=== PATIENT | female | born 1935 | race Caucasian/White ===

== ENCOUNTER 2016-10-30 14:17 | Emergency (ER) | payer MEDICARE, OTHER ==
[2016-10-30] MEDS ORDERED: Lidocaine 1% PF 5 ML VIAL ONE (14:49)
[2016-10-30] MEDS ORDERED: cefTRIAXone\\ROCEPHIN 1 GM VIAL ONE (14:49)
--- NOTE | 2016-10-30 15:11 | RAD ---
EXAM: CHEST 2 VIEWS: HISTORY: Three weeks of cough and difficulty breathing. Fever. FINDINGS: Normal cardiac silhouette. Pulmonary vessels and hilum are normal. Visualized costophrenic angles are clear. There are hazy opacities in both lung bases which may represent small pleural effusion. There appear to be bibasilar opacities, worrisome for bibasilar pneumonia. Lungs are mildly hyperi nflated. There is no pneumothorax or osseous abnormalities. Bilateral breast augmentation is noted . IMPRESSION: Bibasilar infiltrates. Continued surveillance is recommended. POS: [facility]
--- NOTE | 2016-10-30 15:31 | PICIS ---
[facility] EMERGENCY RECORD TRIAGE (WedOct 30, 2016 14:28 SMOO) TRIAGE NOTES: COUGH, DIFFICULTY BREATHING, FEVER X 3 WEEKS. (WedOct 30, 2016 14:28 SMOO) PATIENT: NAME: Marisol Hodges, AGE: 81, GENDER: female, : Sat 1935, TIME OF GREET: WedOct 30, 2016 14:18, PREFERRED LANGUAGE: Thai, ETHNICITY: Not or , ECODE BILLING MAP: [facility], SSN: [id number], Zip Code: [address], KG WEIGHT: 81.65, PHONE: , , , PERSON ID: [id number], PCP: Mohit GIRON LUKE. (WedOct 30, 2016 14:28 SMOO) COMPLAINT: COUGH,CONGESTION,WHEEZING. (WedOct 30, 2016 14:28 SMOO) ADMISSION: URGENCY: 4 Non Urgent, ADMISSION SOURCE: Home, TRANSPORT: Walk-in, BED: ER -04. (WedOct 30, 2016 14:28 SMOO) ASSESSMENT: Assessment: COLD SYMPTOMS X 3 WEEKS. (14:34 SMOO) IMMUNIZATIONS: Flu vaccine up to date, Tetanus not up to date. (14:34 SMOO) SIRS SCORING: Heart Rate 55-109 (0), Temp range 96.8-101.1 (0), respiratory rate 12-24 (0), Mental Status altered: no (0), Infection or Suspected Infection: No. (14:34 SMOO) TRIAGE SCREENING: Patient denies suicidal ideation, Patient denies presence of domestic violence. (14:34 SMOO) PROVIDERS: TRIAGE NURSE: Lashay Mc RN. (WedOct 30, 2016 14:28 SMOO) VITAL SIGNS: BP 119/55, Pulse 82, Resp 20, Temp 98.8, (Oral), Pain 0, O2 Sat 96, on Room Air, Time 10/30/2016 14:23. (14:23 SMOO) KNOWN ALLERGIES TETNUS CURRENT MEDICATIONS Lipitor: TABLET : Strength - 20 mg : ORAL Patient Dose: 1 tab(s) Oral once a day. (14:36 SMOO) levothyroxine: TABLET : Strength - 75 mcg : ORAL Patient Dose: 1 tab(s) Oral once a day. (14:37 SMOO) Requip: TABLET : Strength - 1 mg : ORAL Patient Dose: 1 tab(s) Oral once a day. (14:38 SMOO) PriLOSEC: CAPSULE,DELAYED RELEASE (ENTERIC COATED) : Strength - 40 mg : ORAL Patient Dose: 1 cap(s) Oral once a day. (14:38 SMOO) Caltrate 600 + D: TABLET, CHEWABLE : Strength - 600 mg calcium (1,500 mg)-800 unit : ORAL Patient Dose: 1 tab(s) Oral once a day. (14:40 SMOO) amiodarone: TABLET : Strength - 100 mg : ORAL Patient Dose: 1 tab(s) Oral once a day. (14:41 SMOO) &a-1R&a+25V*p+0X*i5916L*c202B*c15G*c2P*p-0X&a-25V&a+1R Name: Marisol Hodges : 1935 F81 MedRec: [id number] AcctNum: [id number] Prepared: WedOct 30, 2016 15:48 by Interface Page 1 of 6 pMD [facility] EMERGENCY RECORD [place]: TABLET : Strength - 10 mg-325 mg : ORAL Patient Dose: 1-2 tab(s) Oral As Needed.EVERY 4-6 HOURS. (14:43 SMOO) Premarin: CREAM WITH APPLICATOR : Strength - 0.625 mg/gram : VAGINAL Patient Dose: 1 g Vaginal. (14:44 SMOO) Spiriva with HandiHaler: CAPSULE, WITH INHALATION DEVICE : Strength - 18 mcg : INHALATION Patient Dose: 1 mcg Inhaler once a day. (14:45 SMOO) tolterodine: TABLET : Strength - 2 mg : ORAL Patient Dose: 1 tab(s) Oral 2 times a day. (14:45 SMOO) VITAL SIGNS VITAL SIGNS: BP: 119/55, Pulse: 82, Resp: 20, Temp: 98.8 (Oral), Pain: 0, O2 sat: 96 on Room Air, Time: 10/30/2016 14:23. (14:23 SMOO) BP: 122/55, Pulse: 80, Resp: 18, Temp: 98.9, Pain: 0, O2 sat: 96 on RA, Time: 10/30/2016 15:35. (15:35 SMOO) NURSING ASSESSMENT: RESPIRATORY /CHEST (15:04 SMOO) CONSTITUTIONAL: Patient arrives ambulatory, Gait steady, History obtained from patient, Patient appears comfortable, Patient cooperative, Patient alert, Oriented to person, place and time, Skin warm, Skin dry, Skin normal in color, Mucous membranes pink, Mucous membranes moist, Patient is well-groomed, Patient complains of COUGH, FEVER. PAIN: No sudden onset of pain, Pain exacerbated by nothing, Nothing has been tried to alleviate the pain. RESPIRATORY/CHEST: Lungs auscultated, Breath sounds without rhonchi, Respiratory assessment findings include respiratory effort easy, Respirations regular, Conversing normally, Neck and chest exam findings include trachea midline, Chest expansion equal, Chest movement symmetrical, Associated with cough, productive of, Associated with fever, PER PT. ENT: Ear assessment findings include ear normal to inspection, Nasal assessment findings include nose normal to inspection, Mouth and throat assessment findings include mouth inspection normal. NURSING PROCEDURE: DISCHARGE NOTE (15:35 SMOO) DISCHARGE: Patient discharged to home, ambulating without assistance, driving self, unaccompanied, Summary of Care printed/ provided, Prescriptions given and instructions on side effects given, Name of prescription(s) given: ZITHROMAX. VITAL SIGNS: BP: 122, / 55, Pulse: 80, Resp: 18, Temp: 98.9, Pain: 0, O2 sat: 96, on: RA. NURSING PROCEDURE: TRANSPORT TO TESTS PATIENT IDENTIFIER: Patient's identity verified by patient &a-1R&a+25V*p+0X*l5519G*c202B*c15G*c2P*p-0X&a-25V&a+1R Name: Marisol Hodges : 1935 F81 MedRec: [id number] AcctNum: [id number] Prepared: WedOct 30, 2016 15:48 by Interface Page 2 of 6 pMD [facility] EMERGENCY RECORD stating name, Patient's identity verified by hospital ID bracelet. (14:57 SMOO) TRANSPORT TO TESTS: Transport indicated to facilitate diagnosis, Patient transported to x-ray, ambulatory, Accompanied by x-ray pet care technician. (14:57 SMOO) Patient transported to x-ray, via cart, Accompanied by x-ray pet care technician, Patient arrived in location at 15:00, Patient departed location at 15:05. (14:52 CCRI) ORDER DETAILS Order Name: XR Chest Pa & Lat STANDARD, Status: Active, Time: 14:37 10/30/2016, User: JULIO, - Ordered for: MD Stevens Stanley, - Entered by: MD Stevens Stanley - [facility] Oct 30, 2016 14:37, - Quantity: 1. MEDICATION ADMINISTRATION SUMMARY Drug Name: Rocephin IM Convenience, Dose Ordered: 1 g, Route: Intramuscular, Status: Given, Time: 15:08 10/30/2016, Detailed record available in Medication Service section. MEDICATION SERVICE (15:08 ) Rocephin IM Convenience: Order: Rocephin IM Convenience (ceftriaxone sodium/lidocaine HCl) - Dose: 1 g : Intramuscular Schedule: Now Ordered by: Yusef Stevens MD Entered by: Yusef Stevens MD WedOct 30, 2016 14:37 , Acknowledged by: Lashay Mc RN WedOct 30, 2016 14:46 Documented as given by: Lashay Mc RN WedOct 30, 2016 15:08 Patient, Medication, Dose, Route and Time verified prior to administration. IM medication, Amount given: 1GM, Medication administered to left buttock, Medication combined for administration with 1% LIDOCAINE 2.1ML, Patient appears Awake and alert- acceptable, Correct patient, time, route, dose and medication confirmed prior to administration, Patient advised of actions and side-effects prior to administration, Allergies confirmed and medications reviewed prior to administration, Patient in position of comfort, Side rails up, Cart in lowest position. 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 HISTORIAN: History provided by patient. TIME COURSE: Gradual onset of symptoms. EXACERBATED BY: Patient's condition &a-1R&a+25V*p+0X*f0822B*c202B*c15G*c2P*p-0X&a-25V&a+1R Name: Marisol Hodges : 1935 F81 MedRec: [id number] AcctNum: [id number] Prepared: WedOct 30, 2016 15:48 by Interface Page 3 of 6 pMD [facility] EMERGENCY RECORD exacerbated by nothing. RELIEVED BY: Patient's condition relieved by nothing. ROS (14:38 SHAN) CONSTITUTIONAL: Negative constitutional review of systems. EYES: Negative eye review of systems. ENT: Negative ears, nose, throat review of systems. CARDIOVASCULAR: Negative cardiovascular review of systems. RESPIRATORY: Historian reports cough. GI: Negative gastrointestinal review of systems. GENITOURINARY FEMALE: Negative genitourinary review of systems. MUSCULOSKELETAL: Negative musculoskeletal review of systems. SKIN: Negative skin review of systems. NEUROLOGIC: Negative neurologic review of systems. ENDOCRINE: Negative endocrine review of systems. NOTES: All systems reviewed, negative except as described above. PAST MEDICAL HISTORY (14:34 SMOO) MEDICAL HISTORY: Flu vaccine up to date, Tetanus not up to date, Past medical history includes cardiac history, arrhythmia, atrial fibrillation, Past medical history includes history of hyperlipidemia, high cholesterol, Past medical history includes pulmonary disease, chronic obstructive pulmonary disease. FEMALE SURGICAL HISTORY: BENIGN BREAST CYST, Surgical history of hysterectomy, Surgical history of orthopedic surgery, BACK SURGERY X 4. PSYCHIATRIC HISTORY: Notes: NO HISTORY. SOCIAL HISTORY: Patient denies alcohol use, Patient denies drug use, Patient is a former tobacco user. PHYSICAL EXAM (14:38 SHAN) CONSTITUTIONAL: Patient afebrile, Pulse normal, Blood pressure normal, Respiratory rate normal, Patient appears non toxic, Patient appears pain free, Patient alert and oriented to person, place and time. HEAD: Head exam included findings of head atraumatic, normocephalic. EYES: Eye exam normal, Eye exam included findings of eyelids normal to inspection, Pupils equally round and reactive to light, Extraocular muscles intact. ENT: ENT exam normal, Pharynx exam normal, Uvula exam normal, Tonsil exam normal. NECK: Neck exam normal, Neck exam included findings of normal range of motion, Trachea midline. RESPIRATORY CHEST: Mild diffuse ronchi noted, Chest exam included findings of chest movement symmetrical, Chest expansion equal, Percussion normal. CARDIOVASCULAR: Cardiovascular assessment normal, Cardiovascular exam included findings of heart rate regular rate and rhythm, Heart &a-1R&a+25V*p+0X*d5058U*c202B*c15G*c2P*p-0X&a-25V&a+1R Name: Marisol Hodges : 1935 F81 MedRec: [id number] AcctNum: [id number] Prepared: WedOct 30, 2016 15:48 by Interface Page 4 of 6 pMD [facility] EMERGENCY RECORD sounds normal. ABDOMEN FEMALE: Abdominal exam normal, Abdominal exam included findings of abdomen nontender, Bowel sounds normal. BACK: Back exam normal. UPPER EXTREMITY: Upper extremity exam normal, Upper extremity exam included findings of inspection normal, Range of motion normal. LOWER EXTREMITY: Lower extremity exam normal, Lower extremity exam included findings of inspection normal, Range of motion normal. NEURO: Neuro exam normal. SKIN: Skin exam normal. PSYCHIATRIC: Psychiatric exam normal, Psychiatric exam included findings of patient oriented to person place and time, Normal affect, Judgment normal, Insight normal. EVENTS TRANSFER: Triage to Emergency Emergency Room -04. (WedOct 30, 2016 14:28 SMOO) Removed from Emergency Emergency Room -04. (15:37 SMOO) DOCTOR NOTES (15:20 SHAN) TEXT: Fever, purulent cough for 3 weeks getting worse; chest x-ray read as neg. by radiologist but right heart margin somewhat obscured. Will treat as a bad bronchitis at least. Aware of amiodarone and lower dose Zithromax still seems indicated. DATA REVIEWED: Lab data reviewed, Xray data reviewed. PROBLEM LIST No recorded problems DIAGNOSIS (15:22 SHAN) FINAL: PRIMARY: Acute bronchitis. DISPOSITION PATIENT: Disposition Type: Discharge, Disposition: *Discharge Home. (15:22 SHAN) Patient left the department. (15:37 SMOO) INSTRUCTION (15:19 SHAN) DISCHARGE: BRONCHITIS, ABX TX (ADULT). FOLLOWUP: Mohit GIRON, ARLEEN, Internal Medicine, [facility] [id number], . SPECIAL: 1. antibiotic as directed 2. be aware that there is a chance that the antibiotic might increase the strength of the amiodarone some; but should be ok 3. rest as much as possible. 4. return if condition worsens 5. followup with regular provider in a week or two. PRESCRIPTION (15:17 JULIO) Zithromax oral: CAPSULE : 250 mg : ORAL : Quantity: 1 &a-1R&a+25V*p+0X*i7259R*c202B*c15G*c2P*p-0X&a-25V&a+1R Name: Marisol Hodges : 1935 81 MedRec: [id number] AcctNum: [id number] Prepared: WedOct 30, 2016 15:48 by Interface Page 5 of 6 pMD [facility] EMERGENCY RECORD Unit: tab(s) Route: ORAL Schedule: See Notes Dispense: 8 Unit: tab(s) May substitute. Refills: No Refills POTENTIAL CONTRAINDICATED INTERACTION: amiodarone oral. NOTES: 2 at first and one daily for seven days No Refills. IMAGING (15:39 SMOO) *DISCHARGE INSTRUCTIONS RECEIPT: Image captured from scanner. *SUPPLY CHARGE SHEET: Image captured from scanner. ADMIN (15:22 JULIO) DIGITAL SIGNATURE: MD Stevens Stanley. Reyna: CCRI=ANA MARIA [place] SHAN=MD Stevens Stanley SMOO=MICHELLE Mc, Lashay &a-1R&a+25V*p+0X*c8726W*c202B*c15G*c2P*p-0X&a-25V&a+1R Name: Marisol Hodges : 1935 F81 MedRec: [id number] AcctNum: [id number] Prepared: WedOct 30, 2016 15:48 by Interface Page 6 of 6 pMD MTDD
== END 2016-10-30 15:35 | disposition home or self-care (01) ==
LOC: NAV ERS 14:17
DX: J20.9 Acute bronchitis, unspecified (principal); I48.91 Unspecified atrial fibrillation; E78.00 Pure hypercholesterolemia, unspecified; E78.5 Hyperlipidemia, unspecified; J44.9 Chronic obstructive pulmonary disease, unspecified; Z87.891 Personal history of nicotine dependence; Z90.710 Acquired absence of both cervix and uterus; Z79.891 Long term (current) use of opiate analgesic; Z79.899 Other long term (current) drug therapy
CPT/HCPCS: 71020; 96372; J0696; J2001

== ENCOUNTER 2016-11-16 09:12 | Outpatient (CLI) | payer MEDICARE, OTHER ==
[2016-11-16 13:00] LABS: ALT (SGPT) 19 U/L (0-55); AST (SGOT) 16 U/L (5-34); Alkaline Phosphatase 88 U/L (40-150); Anion Gap 16 mmol/L (10-20); BUN (Urea Nitrogen) 21 mg/dL (9.8-20.1); Bilirubin, Total 0.6 mg/dL (0.2-1.2); Calc. Creatinine Clearance 0 mL/min (70-130); Calcium 9.2 mg/dL (7.8-10.44); Carbon Dioxide 23 mmol/L (23-31); Chloride 104 mmol/L (98-107); Estimated GFR-MDRD 48; Globulin 2.8 g/dL (2.4-3.5); LDL Cholesterol, Calculated 73 mg/dL
[2016-11-16 13:28] LABS: #Basophils 0.1 thou/uL (0.0-0.2); #Eosinphils 0.1 thou/uL (0.0-0.7); #Lymphocytes 2.7 thou/uL (1.20-3.40); #Monocytes 0.5 thou/uL (0.11-0.59); #Neutrophils 4.3 thou/uL (1.40-6.50); %Basophils 1.2 % (0.0-1.0); %Eosinophils 1.7 % (0.0-10.0); %Lymphocytes 34.6 % (21.0-51.0); %Monocytes 6.7 % (0.0-10.0); Hematocrit 44.9 % (36.0-47.0); Mean Platelet Volume 5.3 fL (7.4-10.4); Red Blood Cell (RBC) Count 4.68 mill/uL (4.20-5.40); White Blood Cell (WBC) Count 7.8 thou/uL (4.8-10.8)
== END 2016-11-16 09:13 | disposition home or self-care (01) ==
LOC: NAVSJIPCSP 09:12
PROVIDERS: ATTEND Internal Medicine
DX: E78.5 Hyperlipidemia, unspecified (principal); M25.571 Pain in right ankle and joints of right foot; M16.9 Osteoarthritis of hip, unspecified; G47.33 Obstructive sleep apnea (adult) (pediatric); N39.0 Urinary tract infection, site not specified; I50.9 Heart failure, unspecified; M54.16 Radiculopathy, lumbar region; Z79.899 Other long term (current) drug therapy
CPT/HCPCS: 36415; 80053; 80061; 81003; 84443; 85025; 85652; 86140; 87086

== ENCOUNTER 2016-11-17 14:16 | Outpatient (CLI) | payer MEDICARE, OTHER ==
[2016-11-17 20:58] LABS: Bilirubin Negative (Negative); Blood, Urine Negative (Negative); Glucose, Urine (Dipstick) Negative (Negative); Ketone, Urine Negative (Negative); Nitrite Negative (Negative); Protein, Urine (Dipstick) Negative (Neg-Trace); Urobilinogen 0.2 mg/dL (0.2-1.0)
== END 2016-11-17 14:17 | disposition home or self-care (01) ==
LOC: NAVSJIPCSP 14:16
PROVIDERS: ATTEND Internal Medicine
DX: N39.0 Urinary tract infection, site not specified (principal)
CPT/HCPCS: 81003

== ENCOUNTER 2018-02-09 17:53 | Emergency (ER) | payer MEDICARE, BC ==
[2018-02-09] MEDS ORDERED: Ondansetron HCl/PF 4 MG/2 ML Vial ONE (18:24)
[2018-02-09] MEDS ORDERED: Sodium Chloride 0.9% 1,000 ML ONE (18:24)
[2018-02-09 18:38] LABS: #Eosinphils 0.1 thou/uL (0.0-0.7); #Lymphocytes 3.2 thou/uL (1.20-3.40); #Monocytes 0.9 thou/uL (0.11-0.59); #Neutrophils 4.9 thou/uL (1.40-6.50); %Basophils 0.4 % (0.0-1.0); %Eosinophils 1.1 % (0.0-10.0); %Lymphocytes 35.6 % (21.0-51.0); %Monocytes 9.4 % (0.0-10.0); %Neutrophils 53.6 % (42.0-75.0); Hemoglobin 13.9 g/dL (12.0-16.0); Mean Corpuscular Hemoglobin 28.5 pg (27.0-31.0); Mean Platelet Volume 5.6 fL (7.4-10.4); Platelet Count 276 thou/uL (130-400); RBC Distribution Width 12.7 % (11.5-14.5); Red Blood Cell (RBC) Count 4.87 mill/uL (4.20-5.40); White Blood Cell (WBC) Count 9.1 thou/uL (4.8-10.8)
[2018-02-09 19:00] LABS: ALT (SGPT) 19 U/L (8-55); AST (SGOT) 15 U/L (5-34); Albumin 4.2 g/dL (3.4-4.8); Alkaline Phosphatase 86 U/L (40-150); Anion Gap 17 mmol/L (10-20); BUN (Urea Nitrogen) 18 mg/dL (9.8-20.1); Bilirubin, Total 0.5 mg/dL (0.2-1.2); CKMB 2.6 ng/mL (0-6.6); Calc. Creatinine Clearance 0 mL/min (70-130); Calcium 9.5 mg/dL (7.8-10.44); Carbon Dioxide 22 mmol/L (23-31); Chloride 98 mmol/L (98-107); Estimated GFR-MDRD 65; Globulin 2.8 g/dL (2.4-3.5); Glucose 108 mg/dL (83-110); Lipase 20 U/L (8-78); Potassium 3.9 mmol/L (3.5-5.1); Sodium 133 mmol/L (136-145); Troponin I Less than 0.010 ng/mL (< 0.028)
--- NOTE | 2018-02-09 20:26 | RAD ---
AP VIEW OF THE CHEST 02/09/18 INDICATION: Nausea and vomiting. FINDINGS: There are bilateral breast implants. There is a dual lead pacemaker overlying the chest wall. Heart s ize and pulmonary vasculature is normal. The lungs are clear. No pleural effusion or pneumothorax is evident. No acute osseous abnormality is evident. IMPRESSION: No acute cardiopulmonary abnormality. Examination is compared to a prior dated 10/30/16. POS: [facility]
== END 2018-02-09 20:22 | disposition home or self-care (01) ==
LOC: NAV ERS 17:53
DX: R11.2 Nausea with vomiting, unspecified (principal); I48.91 Unspecified atrial fibrillation; E78.5 Hyperlipidemia, unspecified; J44.9 Chronic obstructive pulmonary disease, unspecified; Z79.891 Long term (current) use of opiate analgesic; Z79.899 Other long term (current) drug therapy
CPT/HCPCS: 71045; 80053; 82553; 83690; 84484; 85025; 96361; 96374; J2405; J7050